=== PATIENT | female | born 1990 ===

== ENCOUNTER 2018-12-27 15:45 | Outpatient (REF) | payer SELFPAY ==
[2018-12-27 21:27] LABS: HCT 37.7 % (36.0-46.0); HGB 12.8 g/dL (12.0-15.5); Mean Corpuscular Volume 88.5 fL (80-95); Mean Platelet Volume 10.4 fL (8.0-11.0); Platelet Count 334 x1000/uL (130-400); RBC 4.26 m/cumm (4.00-5.20); RBC Distribution Width 12.2 % (11.7-14.6); White Blood Cell Count 8.46 k/cumm (4.4-10.8)
[2018-12-27 21:43] LABS: Anion Gap 10.5 mmol/L (3-11); BUN 17 mg/dL (7-18); CO2 26.5 mmol/L (21.0-32.0); CREATININE 1.21 mg/dL (0.55-1.02); Calcium 9.3 mg/dL (8.5-10.1); Chloride 103 mmol/L (98-107); Estimated GFR 53.79 (mL/min/1.73m2); Glucose 83 mg/dL (70-100); Potassium 4.2 mmol/L (3.5-5.1); Sodium 140 mmol/L (136-145); TSH 0.59 uIU/mL (0.358-3.74)
[2018-12-27 21:57] LABS: Cholesterol 187 mg/dL (50-200); HDL Cholesterol 45 mg/dL (40-60); LDL CHOLESTEROL 122 mg/dL (<100); Triglyceride 99 mg/dL (30-150)
[2018-12-27 22:01] LABS: Hemoglobin A1C 5.5 % (4.5-6.2)
== END 2018-12-27 16:05 ==
LOC: NCHCN 15:45
PROVIDERS: PCP Nurse Practitioner Family; Visit Provider Nurse Practitioner Family
DX: R53.83 Other fatigue (principal); E66.9 Obesity, unspecified
CPT/HCPCS: 80048; 80061; 83721; 85027; 83036; 84443